=== PATIENT | female | born 1980 | race Two or more races ===

== ENCOUNTER 2022-04-13 17:18 | Emergency (ER) | payer SELFPAY ==
--- NOTE | 2022-04-13 17:48 | NUR ---
CALLED IN ED WAITING ROOM. NO RESPONSE
--- NOTE | 2022-04-13 17:51 | NUR ---
CALLED TO TRIAGE,SHE LEFT PER ADMITTING
== END 2022-04-13 18:13 | disposition left against medical advice (07) ==
LOC: ER 17:58
DX: Z53.21 Procedure and treatment not carried out due to patient leaving prior to being seen by health care provider (principal)

== ENCOUNTER 2022-10-27 12:59 | Emergency (ER) | payer MEDICAID ==
[~2022-10-27] VITALS: Ht 172.7 cm; Wt 91.2 kg
[2022-10-27 13:50] VITALS: BP 116/77
--- NOTE | 2022-10-27 15:30 | NUR ---
RESEARCH MICROBIOLOGIST AT BEDSIDE
[2022-10-27 15:36] LABS: BASOPHILS % (AUTO) 0.4 % (0.0-2.0); EOSINOPHILS % (AUTO) 1.9 % (0.0-6.0); HEMATOCRIT 42 % (33-45); HEMOGLOBIN 13.7 g/dL (11.5-14.8); LYMPHOCYTES # (AUTO) 2.2 K/uL (0.8-4.8); LYMPHOCYTES % (AUTO) 29.1 % (20.0-44.0); MEAN CORPUSCULAR HGB CONC 33 g/dl (31.0-36.0); MEAN CORPUSCULAR VOLUME 94 fL (82-100); MONOCYTES # (AUTO) 0.4 K/uL (0.1-1.30); MONOCYTES % (AUTO) 5.7 % (2.0-12.0); NEUTROPHILS # (AUTO) 4.8 K/uL (1.8-8.9); NEUTROPHILS % (AUTO) 62.9 % (43.0-81.0); PLATELET COUNT (AUTO) 179 K/uL (150-450); RED BLOOD CELL COUNT(AUTO) 4.44 MIL/uL (4.0-5.2); WHITE BLOOD COUNT (AUTO) 7.6 K/uL (4.3-11.0)
[2022-10-27 15:53] LABS: ALBUMIN 3.5 g/dL (3.4-5.0); BILIRUBIN,DIRECT 0.1 mg/dL (0.0-0.2); BILIRUBIN,TOTAL 0.2 mg/dL (0.2-1.0); CALCIUM, SERUM 8.9 mg/dL (8.5-10.1); CREATININE 0.8 mg/dL (0.6-1.3); POTASSIUM 3.7 mmol/L (3.5-5.1)
--- NOTE | 2022-10-27 15:54 | NUR ---
SWAB FOR COVID19 AND RAPID INFLUENZA SEN TO LAB
--- NOTE | 2022-10-27 17:44 | NUR ---
NO obvious distress- Stable Patient discharged to home in stable condition. Written and verbal after care instructions given. Patient verbalizes understanding of instruction.
== END 2022-10-27 17:44 | disposition home or self-care (01) ==
LOC: ER 13:45
DX: R51.9 Headache, unspecified (principal); R07.9 Chest pain, unspecified; Z20.822 Contact with and (suspected) exposure to COVID-19
CPT/HCPCS: 99285; 71045; 87426; 93005; 87804 ×2; 85025; 80048; 80076; 36415; 84702; C9803

== ENCOUNTER 2023-02-13 23:28 | Emergency (ER) | payer MEDICAID ==
[~2023-02-13] VITALS: Ht 180.3 cm; Wt 122.5 kg
--- NOTE | 2023-02-14 03:12 | NUR ---
Patient does not wish to proceed with medical care recommended by Dr. Marks. Patient given information related to possible complications, up to and including , which could occur as a result of leaving the hospital at this time. Patient verbalizes understanding of risks involved due to leaving against medical advice. Patient has signed AMA form.
[2023-02-14 03:13] VITALS: BP 130/70
== END 2023-02-14 03:13 | disposition left against medical advice (07) ==
LOC: ER 23:30
DX: S83.92XA Sprain of unspecified site of left knee, initial encounter (principal); X50.1XXA Overexertion from prolonged static or awkward postures, initial encounter; Y93.89 Activity, other specified; Y92.89 Other specified places as the place of occurrence of the external cause; Y99.8 Other external cause status
CPT/HCPCS: 73564-TC

== ENCOUNTER 2023-02-23 18:57 | Emergency (ER) | payer MEDICAID ==
[~2023-02-23] VITALS: Ht 180.3 cm; Wt 136.1 kg
--- NOTE | 2023-02-23 20:38 | NUR ---
URINE COLLECTED AND SENT TO LAB
--- NOTE | 2023-02-23 20:49 | NUR ---
Patient AOx 4, able to express her concerns. Rolanda states she fell on February 14 or and after that she has been experiencing c/o: left knee pain that radiates to pelvis and low back. Discussed plan of care, rolanda verbalized agreeement. All safety precautions taken.
[2023-02-23] MEDS ORDERED: KETOROLAC TROMETHAMINE INJ 60 MG/2 ML VIAL IM ONE (21:30)
[2023-02-23 21:36] LABS: BASOPHILS % (AUTO) 0.5 % (0.0-2.0); EOSINOPHILS % (AUTO) 1.8 % (0.0-6.0); HEMATOCRIT 40 % (33-45); LYMPHOCYTES # (AUTO) 3.4 K/uL (0.8-4.8); LYMPHOCYTES % (AUTO) 37.9 % (20.0-44.0); MEAN CORPUSCULAR HGB CONC 33 g/dl (31.0-36.0); MEAN CORPUSCULAR VOLUME 93 fL (82-100); MONOCYTES # (AUTO) 0.6 K/uL (0.1-1.30); MONOCYTES % (AUTO) 6.3 % (2.0-12.0); NEUTROPHILS # (AUTO) 4.8 K/uL (1.8-8.9); NEUTROPHILS % (AUTO) 53.5 % (43.0-81.0); PLATELET COUNT (AUTO) 164 K/uL (150-450); RED BLOOD CELL COUNT(AUTO) 4.29 MIL/uL (4.0-5.2); WHITE BLOOD COUNT (AUTO) 8.9 K/uL (4.3-11.0)
[2023-02-23 21:49] LABS: BILIRUBIN,URINE 1+ (NEGATIVE); COLOR,URINE YELLOW (YELLOW); LEUKOCYTE ESTERASE ,URINE NEGATIVE (NEGATIVE); NITRITE, URINE NEGATIVE (NEGATIVE); PROTEIN,URINE NEGATIVE (NEGATIVE); UGLUCOSE NEGATIVE (NEGATIVE); UROBILINOGEN,URINE 0.2 EU/dL (0.2)
[2023-02-23 21:51] LABS: CALCIUM, SERUM 9.3 mg/dL (8.5-10.1); CREATININE 0.6 mg/dL (0.6-1.3); POTASSIUM 3.9 mmol/L (3.5-5.1)
[2023-02-23 21:56] LABS: ALBUMIN 3.4 g/dL (3.4-5.0); BILIRUBIN,DIRECT 0.1 mg/dL (0.0-0.2); BILIRUBIN,TOTAL 0.2 mg/dL (0.2-1.0); TOTAL PROTEIN, SERUM 7.8 g/dL (6.4-8.2)
[2023-02-23 21:58] LABS: BACTERIA,URINE None seen /HPF (None Seen); MUCUS,URINE Many /LPF (None Seen); WBC,URINE 0-2 /HPF (0-3)
[2023-02-23] MEDS ORDERED: KETOROLAC TROMETHAMINE INJ 30 MG/ML VIAL ONE (22:10)
[2023-02-23] MEDS ORDERED: IBUP-1955 PO (22:24)
[2023-02-23 22:34] VITALS: BP 110/73
== END 2023-02-23 22:34 | disposition home or self-care (01) ==
LOC: ER 19:02
DX: S83.8X2A Sprain of other specified parts of left knee, initial encounter (principal); M54.50 Low back pain, unspecified; F17.200 Nicotine dependence, unspecified, uncomplicated; W01.0XXA Fall on same level from slipping, tripping and stumbling without subsequent striking against object, initial encounter; Y93.89 Activity, other specified; Y92.89 Other specified places as the place of occurrence of the external cause; Y99.8 Other external cause status
CPT/HCPCS: 99284; 96372; 72110; 73564; 85025; 80048; 80076; 81001; 36415; J1885

== ENCOUNTER → 2024-01-03 | Emergency (ER) | payer MEDICAID, OTHER ==
[~2024-01-03] VITALS: Ht 182.9 cm; Wt 127.0 kg
[~2024-01-03] MED LIST: ACET-2605 PO; IBUP-1953 PO; IBUP-1955 PO; KETOROLAC TROMETHAMINE 15 MG/ML VIAL ONE; MECL-159 PO
[2024-01-03 18:36] VITALS: TEMP 98.4
[2024-01-03 19:00] VITALS: BP 108/61; O2SAT 100
[2024-01-03 19:20] LABS: PREGNANCY TEST URINE QUAL NEGATIVE (NEGATIVE)
[2024-01-03 19:24] LABS: APPEARANCE,URINE SLIGHTLY CLOUDY (CLEAR); BILIRUBIN,URINE NEGATIVE (NEGATIVE); BLOOD, URINE 3+ Ery/uL (NEGATIVE); COLOR,URINE YELLOW (YELLOW); KETONES,URINE NEGATIVE (NEGATIVE); LEUKOCYTE ESTERASE ,URINE NEGATIVE (NEGATIVE); NITRITE, URINE NEGATIVE (NEGATIVE); PH,URINE 6.5 (5.0-8.0); PROTEIN,URINE NEGATIVE (NEGATIVE); UGLUCOSE NEGATIVE (NEGATIVE); UROBILINOGEN,URINE 0.2 EU/dL (0.2)
[2024-01-03 20:06] LABS: ADD URINE CULTURE NO; BACTERIA,URINE Few /HPF (None Seen); RBC,URINE TOO NUMEROUS TO COUN /HPF (0-2); SQUAMOUS EPITHELIAL CELL,UR Few /HPF (None Seen); WBC,URINE 0-2 /HPF (0-3)
[2024-01-03] MEDS: KETOROLAC TROMETHAMINE 15 MG/ML VIAL IM ONE (20:41)
[2024-01-03 21:18] LABS: CALCIUM, SERUM 8.8 mg/dL (8.5-10.1); CREATININE 0.8 mg/dL (0.6-1.3)
[2024-01-03 21:19] LABS: BASOPHILS % (AUTO) 0.3 % (0.0-2.0); EOSINOPHILS # (AUTO) 0.2 K/uL (0.0-0.7); EOSINOPHILS % (AUTO) 1.8 % (0.0-6.0); HEMATOCRIT 39 % (33-45); HEMOGLOBIN 12.9 g/dL (11.5-14.8); LYMPHOCYTES % (AUTO) 33.1 % (20.0-44.0); MEAN CORPUSCULAR HEMOGLOBIN 32 PG (26.0-33.0); MEAN CORPUSCULAR HGB CONC 33 g/dl (31.0-36.0); MEAN CORPUSCULAR VOLUME 95 fL (82-100); MONOCYTES # (AUTO) 0.5 K/uL (0.1-1.30); MONOCYTES % (AUTO) 5.5 % (2.0-12.0); NEUTROPHILS # (AUTO) 5.3 K/uL (1.8-8.9); NEUTROPHILS % (AUTO) 59.3 % (43.0-81.0); PLATELET COUNT (AUTO) 181 K/uL (150-450); RED BLOOD CELL COUNT(AUTO) 4.07 MIL/uL (4.0-5.2); RED CELL DISTRIBUTION WIDTH 15.1 % (11.5-15.0)
[2024-01-03 21:22] LABS: ALBUMIN 3.1 g/dL (3.4-5.0); BILIRUBIN,DIRECT 0.1 mg/dL (0.0-0.2); BILIRUBIN,TOTAL 0.3 mg/dL (0.2-1.0); TOTAL PROTEIN, SERUM 7.6 g/dL (6.4-8.2)
== END | disposition home or self-care (01) ==
LOC: ER 16:50
DX: R10.32 Left lower quadrant pain (principal); M25.562 Pain in left knee; F17.200 Nicotine dependence, unspecified, uncomplicated
CPT/HCPCS: 99285; 74176; 76856; 96372; 85025; 80048; 83690; 80076; 84703; 81001; 36415; J1885

== ENCOUNTER 2024-07-11 09:54 | Emergency (ER) | payer MEDICAID, OTHER ==
[~2024-07-11] VITALS: Ht 188 cm; Wt 124.7 kg
[~2024-07-11 09:54] MED LIST changes: -KETOROLAC TROMETHAMINE 15 MG/ML VIAL ONE
[2024-07-11] MEDS ORDERED: IBUPROFEN 600 MG TABLET ONE (10:26)
[2024-07-11] MEDS ORDERED: MECLIZINE HCL 12.5 MG TABLET ONE (10:27)
[2024-07-11] MEDS ORDERED: PSEUDOEPHEDRINE HCL 30 MG TABLET ONE (10:27)
[2024-07-11] MEDS: IBUPROFEN 600 MG TABLET PO ONE (10:32)
[2024-07-11] MEDS: PSEUDOEPHEDRINE HCL 30 MG TABLET PO ONE (10:32)
[2024-07-11] MEDS: MECLIZINE HCL 12.5 MG TABLET PO ONE (10:32)
[2024-07-11] MEDS ORDERED: HYDR50TA61 PO (11:04)
[2024-07-11] MEDS ORDERED: MELA10CA PO (11:04)
[2024-07-11] MEDS ORDERED: hydrOXYzine 10 MG TABLET ONE (11:21)
[2024-07-11] MEDS: hydrOXYzine 10 MG TABLET PO ONE (11:30)
[2024-07-11 11:33] VITALS: BP 121/69; TEMP 99; O2SAT 98
== END 2024-07-11 11:34 | disposition home or self-care (01) ==
LOC: ER 10:01
DX: J32.9 Chronic sinusitis, unspecified (principal); J34.89 Other specified disorders of nose and nasal sinuses; R09.81 Nasal congestion; F17.200 Nicotine dependence, unspecified, uncomplicated; Z98.51 Tubal ligation status; Z20.822 Contact with and (suspected) exposure to COVID-19
CPT/HCPCS: 99284; 87426; J8597; Q0177

== ENCOUNTER 2024-11-03 20:23 | Emergency (ER) | payer MEDICAID, OTHER ==
[~2024-11-03] VITALS: Ht 182.9 cm; Wt 108.9 kg
[~2024-11-03 20:23] MED LIST changes: +HYDR50TA61 PO; +MELA10CA PO
[2024-11-03 22:05] LABS: BASOPHILS % (AUTO) 0.4 % (0.0-2.0); EOSINOPHILS # (AUTO) 0.2 K/uL (0.0-0.7); EOSINOPHILS % (AUTO) 2.1 % (0.0-6.0); HEMATOCRIT 41 % (33-45); HEMOGLOBIN 13.7 g/dL (11.5-14.8); LYMPHOCYTES % (AUTO) 39.8 % (20.0-44.0); MEAN CORPUSCULAR HEMOGLOBIN 32 PG (26.0-33.0); MEAN CORPUSCULAR HGB CONC 34 g/dl (31.0-36.0); MEAN CORPUSCULAR VOLUME 93 fL (82-100); MONOCYTES # (AUTO) 0.4 K/uL (0.1-1.30); MONOCYTES % (AUTO) 5.8 % (2.0-12.0); NEUTROPHILS # (AUTO) 3.9 K/uL (1.8-8.9); NEUTROPHILS % (AUTO) 51.9 % (43.0-81.0); PLATELET COUNT (AUTO) 176 K/uL (150-450); RED BLOOD CELL COUNT(AUTO) 4.37 MIL/uL (4.0-5.2); WHITE BLOOD COUNT (AUTO) 7.5 K/uL (4.3-11.0)
[2024-11-03] MEDS ORDERED: ACETAMINOPHEN ES 500 MG TABLET ONE (22:06)
[2024-11-03] MEDS ORDERED: KETOROLAC TROMETHAMINE INJ 30 MG/ML VIAL ONE (22:06)
[2024-11-03] MEDS: ACETAMINOPHEN ES 500 MG TABLET PO ONE (22:14)
[2024-11-03] MEDS: KETOROLAC TROMETHAMINE INJ 30 MG/ML VIAL IM ONE (22:14)
[2024-11-03 22:20] LABS: CALCIUM, SERUM 9.2 mg/dL (8.5-10.1); CREATININE 0.7 mg/dL (0.6-1.3); POTASSIUM 4.2 mmol/L (3.5-5.1)
[2024-11-03] MEDS ORDERED: IBUP-1490 PO (22:48)
[2024-11-03 22:59] VITALS: BP 115/60; TEMP 98.4; O2SAT 99
[2024-11-03 23:07] LABS: PREGNANCY TEST URINE QUAL NEGATIVE (NEGATIVE)
== END 2024-11-03 22:59 | disposition home or self-care (01) ==
LOC: ER 20:29
DX: J06.9 Acute upper respiratory infection, unspecified (principal); F17.200 Nicotine dependence, unspecified, uncomplicated; Z98.51 Tubal ligation status; Z20.822 Contact with and (suspected) exposure to COVID-19
CPT/HCPCS: 99284; 71045; 87426; 96372; 87804 ×2; 85025; 80048; 84703; 36415; J1885

== ENCOUNTER 2025-05-28 20:00 | Emergency (ER) | payer OTHER ==
[~2025-05-28] VITALS: Ht 175.3 cm; Wt 106.6 kg
[~2025-05-28 20:00] MED LIST changes: +IBUP-1490 PO
[2025-05-28] MEDS ORDERED: ACETAMINOPHEN ES 500 MG TABLET ONE (20:31)
[2025-05-28 20:45] VITALS: O2SAT 98
[2025-05-28 20:45] LABS: PLATELET COUNT (AUTO) 148 K/uL (150-450); RED BLOOD CELL COUNT(AUTO) 3.98 MIL/uL (4.0-5.2); RED CELL DISTRIBUTION WIDTH 15.2 % (11.5-15.0); WHITE BLOOD COUNT (AUTO) 5.1 K/uL (4.3-11.0)
[2025-05-28] MEDS: ALBUTEROL FS 2.5 MG/3 ML VIAL.NEB NEB ONE (20:45)
[2025-05-28] MEDS: IPRATROPIUM NEB FS 0.5 MG/2.5 ML AMPUL.NEB NEB ONE (20:45)
[2025-05-28] MEDS: ACETAMINOPHEN ES 500 MG TABLET PO ONE (20:47)
[2025-05-28] MEDS ORDERED: ALBUTEROL FS 2.5 MG/3 ML VIAL.NEB ONE (20:49)
[2025-05-28 20:54] LABS: CALCIUM, SERUM 8.6 mg/dL (8.5-10.1); CREATININE 0.9 mg/dL (0.6-1.3); SODIUM SERUM 139 mmol/L (136-145); UREA NITROGEN, BLOOD 9 mg/dL (7-18)
[2025-05-28 21:00] LABS: ASPARTATE AMINOTRANSFERASE 21 U/L (15-37); TOTAL PROTEIN, SERUM 7.3 g/dL (6.4-8.2)
[2025-05-28 21:45] VITALS: O2SAT 98
[2025-05-28] MEDS ORDERED: AMOX/CLAVULANATE 875 MG TABLET ONE (22:30)
[2025-05-28] MEDS: AMOX/CLAVULANATE 875 MG TABLET PO ONE (22:37)
[2025-05-29 01:58] VITALS: BP 120/70; TEMP 98.7; O2SAT 98
== END 2025-05-29 01:59 | disposition left against medical advice (07) ==
LOC: ER 20:03
DX: R09.02 Hypoxemia (principal); R05.9 Cough, unspecified; R09.81 Nasal congestion; J02.9 Acute pharyngitis, unspecified; H92.03 Otalgia, bilateral; F17.200 Nicotine dependence, unspecified, uncomplicated; R06.02 Shortness of breath; R07.2 Precordial pain; R10.2 Pelvic and perineal pain; Z98.51 Tubal ligation status; Z20.822 Contact with and (suspected) exposure to COVID-19
CPT/HCPCS: 99285; 71045; 87426; 93005; 87804 ×2; 85025; 80048; 87040 ×2; 87070; 80076; 36415; 87880; 84484; 84702; 94644; J7512; 86403-TC

== ENCOUNTER 2025-08-23 15:47 | Emergency (ER) | payer OTHER ==
[~2025-08-23] VITALS: Ht 172.7 cm; Wt 127.5 kg
[2025-08-23 16:05] VITALS: TEMP 97.8
[2025-08-23] MEDS ORDERED: ACETAMINOPHEN 325 MG TABLET ONE (16:17)
[2025-08-23] MEDS: ACETAMINOPHEN 325 MG TABLET PO ONE (16:20)
[2025-08-23 16:33] LABS: PLATELET COUNT (AUTO) 168 K/uL (150-450); RED BLOOD CELL COUNT(AUTO) 4.24 MIL/uL (4.0-5.2); RED CELL DISTRIBUTION WIDTH 14.0 % (11.5-15.0); WHITE BLOOD COUNT (AUTO) 7.1 K/uL (4.3-11.0)
[2025-08-23 16:44] LABS: PREGNANCY TEST URINE QUAL NEGATIVE (NEGATIVE)
[2025-08-23 16:48] LABS: ASPARTATE AMINOTRANSFERASE 22.0 U/L (15-37); CALCIUM, SERUM 8.4 mg/dL (8.5-10.1); CREATININE 0.6 mg/dL (0.6-1.3); SODIUM SERUM 143.0 mmol/L (136-145); TOTAL PROTEIN, SERUM 7.7 g/dL (6.4-8.2); UREA NITROGEN, BLOOD 8.0 mg/dL (7-18)
[2025-08-23 18:45] LABS: APPEARANCE,URINE CLEAR (CLEAR); BLOOD, URINE 2+ Ery/uL (NEGATIVE); LEUKOCYTE ESTERASE ,URINE NEGATIVE (NEGATIVE); NITRITE, URINE NEGATIVE (NEGATIVE); UGLUCOSE NEGATIVE (NEGATIVE)
[2025-08-23 18:59] LABS: ADD URINE CULTURE YES; SQUAMOUS EPITHELIAL CELL,UR Many /HPF (None Seen)
[2025-08-23] MEDS ORDERED: METR70GE17 VG (19:55)
[2025-08-23] MEDS ORDERED: CEPH500C2 PO (19:55)
[2025-08-23 19:59] VITALS: BP 120/78; O2SAT 97
== END 2025-08-23 20:01 | disposition home or self-care (01) ==
LOC: ER 15:47
DX: R10.20 Pelvic and perineal pain unspecified side (principal); R30.0 Dysuria; R31.9 Hematuria, unspecified; F17.200 Nicotine dependence, unspecified, uncomplicated; Z98.51 Tubal ligation status
CPT/HCPCS: 36415; 76856-TC; 80048-TC; 80076-TC; 81001; 84703-TC; 85025-TC; 87086-TC; 87210-TC